=== PATIENT | male | born 1930 | race Caucasian/White ===

== ENCOUNTER 2020-11-05 17:00 | Inpatient (IN) | payer OTHER ==
--- OUTSIDE RECORDS SUMMARY | 2020-11-05 17:03 | XMS REPORT | Continuity of Care Document ---
:1930 Author Organization [facility] t Address [address] [place] [address] Support Name Relationship Address Phone Jonatan Cat Other [address] [place] [address] SUNITA VILLALPANDO, MD GISELA Jensen Admitting Provider [address] [place] [address] ROLO VILLALPANDO, C Emergency Provider [address] [facility] [address] EMORY, (POA) Family Member [address] [facility] [place] [address] MAYRA VILLALPANDO, L Emergency Provider [address] [place] [address] ANGELIKA VILLALPANDO, A Emergency Provider [address] [place] [address] SHEIKH IRASEMA, A Emergency Provider [facility] [address] [place] [address] VIJAY RAMÍREZ DO Emergency Provider [address] [place] [address] KENDAL VILLALPANDO, E Emergency Provider [address] [facility] [id number] [place] [address] MD DACIA Emergency Provider [address] [place] [address] MD SUNITA L Primary Care Physician [address] [place] [address] [place] [address] KG Family Member [address] [place] [address] Care Team Providers Name Role Phone HARRIET Primary Care Physician Unavailable HARREIT Attending Clinician Unavailable HARRIET Admitting Clinician Unavailable Problems Condition Condition Condition Status Onset Resolution Last Treating Co mments Source Name Details Category Date Date Treatment Clinician Date 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 Social History Social Habit Start Date Stop Date Quantity Comments Source Sex Assigned At [facility] Alcohol intake 2017-03-16 2017-03-16 Current drinker [place] [facility] 00:00:00 00:00:00 of alcohol (finding) Alcohol Comment 2017-03-15 2017-03-15 Pt. drink 2 cans [facility]ule[facility]ka [facility] 00:00:00 00:00:00 of beer once a week Smoking Status Start Date Stop Date Source Former smoker 2017-03-16 00:00:00 2017-03-16 00:00:00 [facility] Medications Ordered Filled Start Stop Current Ordering Indication Dosage Frequency Signature Comments Components Source Medication Medication Date Date Medication? Clinician (SIG) Name Name tamsulosin Yes .4mg QD Take 0.4 Zule[facility]ka ston (FLOMAX) 7-12 mg by Methodi 0.4 mg 10:05: mouth st capsule,ext 13 daily. ended release 24hr aspirin Yes 81mg QD Take 81 mg [place] (ECOTRIN) 7-12 by mouth Method i 81 MG 10:05: daily. st enteric 13 coated tablet lisinopril- Yes 1{tbl} QD Take 1 [place] hydrochloro 7-12 tablet by Met hodi thiazide 10:05: mouth st (PRINZIDE,Z 13 daily. ESTORETIC) 20-12.5 mg per tablet pantoprazol Yes 40mg QD Take 40 mg [place] e 7-12 by mouth Methodi (PROTONIX) 10:05: daily. st 40 MG EC 13 tablet pravastatin Yes 40mg QD Take 40 mg [place] (PRAVACHOL) 7-12 by mouth Meth juan jose 40 MG 10:05: daily. st tablet 13 digoxin 125 digoxin 125 No digoxin [facility] mcg tabs mcg tabs 125 mcg da tabs [facility] flecainide flecainide No flecainide [facility] acetate 100 acetate 100 acetate da mg tabs mg tabs 100 mg Medical tabs Group gabapentin gabapentin No gabapentin [facility] 100 mg caps 100 mg caps 100 mg da caps Medical Group isosorbide isosorbide No isosorbide [facility] mononitrate mononitrate mononitrat da er 30 mg er 30 mg e er 30 mg M edical tb24 tb24 tb24 Group pantoprazol pantoprazol No pantoprazo [facility] e sodium 40 e sodium 40 le sodium da mg tbec mg tbec 40 mg tbec Med ical Group pravastatin pravastatin No pravastati [place] sodium 20 sodium 20 n sodium d a mg tabs mg tabs 20 mg tabs Med ical Group ranitidine ranitidine No ranitidine [facility] hcl 150 mg hcl 150 mg hcl 150 mg da tabs tabs tabs Medical Group tamsulosin tamsulosin No tamsulosin [facility] hydrochlori hydrochlori hydrochlor da de 0.4 mg de 0.4 mg melissa 0.4 mg Medical caps caps caps Group tramadol tramadol No tramadol [facility] hcl 50 mg hcl 50 mg hcl 50 mg da tabs tabs tabs Medical Group amlodipine amlodipine No amlodipine [facility] besylate 5 besylate 5 besylate 5 da mg tabs mg tabs mg tabs Medica l Group anoro anoro No anoro [facility] ellipta ellipta ellipta da 62.5-25 62.5-25 62.5-25 Medica l mcg/inh mcg/inh mcg/inh Group aepb aepb aepb cefdinir cefdinir No cefdinir [facility] 300 mg caps 300 mg caps 300 mg da caps Medical [facility] Vital Signs Vital Name Observation Time Observation Value Comments Source BP Diastolic 2019-02-04 00:00:00 87 mm[Hg] [facility] Height 2019-02-04 00:00:00 71 [in_i] [facility] BMI (Body Mass 2019-02-04 00:00:00 22 kg/m2 [facility] Medical Index) Group BP Systolic 2019-02-04 00:00:00 145 mm[Hg] [facility] Body Weight 2019-02-04 00:00:00 158 [lb_av] [facility] Procedures This patient has no known procedures. Plan of Care Planned Activity Planned Date Details Comments Source Future Scheduled Test 2020-04-08 [facility] 00:00:00 [code = INFLUENZA VACCINE] Future Scheduled Test 1996 65+ PNEUMOCOCCAL [facility] 00:00:00 VACCINE (1 of 1 - PPSV23) [code = 65+ PNEUMOCOCCAL VACCINE (1 of 1 - PPSV23)] Future Scheduled Test 1981 SHINGLES VACCINES [place] [facility] 00:00:00 (#1) [code = SHINGLES VACCINES (#1)] Future Scheduled Test 1947 COVID-19 VACCINE (1 [facility] 00:00:00 of 2) [code = COVID-19 VACCINE (1 of 2)] Instructions [facility] Encounters Start End Encounter Admission Attending Care Care Encounter Source Date/Time Date/Time Type Type Clinicians Facility Department ID 2019-02-04 2019-02-04 [facility] [place] - [id number] [facility] 00:00:00 00:00:00 Emory DO: [facility] a [address] [place] [address] Group Marissa, [facility] - [address], [facility] [place] [address] , Ph. [phone] 2017-07-28 2017-07-28 Outpatient Sher LARIOS, [facility] [id number] [facility] 20:53:00 20:53:00 [facility] Results Test Description Test Time Test Comments Results Result Comments Source Lipid Profile 2017-07-28 23:53:00 Test Item Value Reference Range Interpretation Comme nts Cholesterol (test code = CHOL) 207 mg/dL 0-200 H Triglycerides (test code = 69 mg/dL 9-200 N TRIG) HDL (test code = HDL) 73 mg/dL 40-60 H Chol/HDL (test code = 2.8 Ratio 0.0-5.0 N CHOLPHDL) LDL, Calculated (test code = 120 0-130 N (NOTE)RISK OF HEART LDLC) DISEASEPublishe d by Filipino Heart AssociationAnal yte Optimal Boderline Increased R iskCHOL <200 200-239 >240TRIG <150 150-199 >200HDL Male: >60 <40HDL Female: & gt;60 <50LDL <100 130- 159 >160LDL NEAR OPTIMAL IS 100- 129 VLDL (test code = VLDL) 14 mg/dL 5-40 N LDL/HDL (test code = LDLPHDL) 2
--- NOTE | 2020-11-05 20:04 | RAD REPORT ---
EXAM DESCRIPTION: Marge Single View11/05/2020 7:49 pm CLINICAL HISTORY: Cough COMPARISON: none FINDINGS: Bilateral calcified lung granulomas. The lungs appear clear of acute infiltrate. The heart is normal size IMPRESSION: No acute abnormalities displayed
[2020-11-05 20:18] LABS: Absolute Lymphocytes (CBC) 1.6 K/uL (0.7-4.9); Basophils % 0.4 % (0-1.3); Hematocrit 40.5 % (39.6-49.0); Lymphocytes % 14.5 % (15.3-44.8); MPV 8.4 fL (7.6-11.3); Protime INR 1.23
[2020-11-05 20:34] LABS: ALT/SGPT 18 U/L (12-78); AST/SGOT 17 U/L (15-37); Albumin 3.6 g/dL (3.4-5.0); Alkaline Phosphatase 81 U/L (45-117); BUN Blood Urea Nitrogen 13 mg/dL (7-18); Bicarbonate 26 mmol/L (21-32); Bilirubin Direct 0.2 mg/dL (0-0.2); Bilirubin Total 0.8 mg/dL (0.2-1.0); Glucose Level 94 mg/dL (74-106); Magnesium 1.9 mg/dL (1.8-2.4); NT PRO-BNP 256 pg/mL (<450); Sodium Level 141 mmol/L (136-145); Troponin (Emerg Dept Use Only) < 0.02 ng/mL (0.0-0.045)
[2020-11-05] MEDS ORDERED: ALBUTEROL INHALER 60 PUFF/8 GM IH ONE (21:02)
[2020-11-05 21:45] LABS: SARS-COV-2 RT PCR NEGATIVE (NEGATIVE)
--- NOTE | 2020-11-05 23:41 | EDPHYS ---
Physician Documentation [facility] Name: Fidel Payne Age: 89 yrs Sex: Male : 1930 Arrival Date: 11/05/2020 Time: 17:02 Bed 25 Private MD: ED Physician Александр Hampton HPI: 11/05 19:25 This 89 yrs old Male presents to ER via Wheelchair with complaints of mh7 Shortness Of Breath, Coughing up blood. 19:25 The patient has shortness of breath at rest, with light activity. Onset: The mh7 symptoms/episode began/occurred yesterday. Duration: The symptoms are intermittent, with no pattern. The patient's shortness of breath is aggravated by coughing, light activity, is alleviated by nothing. Associated signs and symptoms: Pertinent positives: productive cough, hemoptysis, Pertinent negatives: chest pain, non-productive cough, diaphoresis, dizziness, fever, loss of consciousness, nausea, numbness in extremities, visual changes, vomiting. Severity of symptoms: At their worst the symptoms were moderate yesterday, in the emergency department the symptoms are unchanged. Historical: - Allergies: 17:14 No Known Allergies; sv - PMHx: 17:14 None; sv - Immunization history:: Adult Immunizations unknown. - Social history:: Smoking status: Patient/guardian denies using tobacco, but has a distant history of tobacco abuse. ROS: 19:25 Constitutional: Negative for fever, chills, and weight loss, Eyes: Negative for injury, mh7 pain, redness, and discharge, ENT: Negative for injury, pain, and discharge, Neck: Negative for injury, pain, and swelling, Cardiovascular: Negative for chest pain, palpitations, and edema, Abdomen/GI: Negative for abdominal pain, nausea, vomiting, diarrhea, and constipation, Back: Negative for injury and pain, : Negative for injury, bleeding, discharge, and swelling, MS/Extremity: Negative for injury and deformity, Skin: Negative for injury, rash, and discoloration, Neuro: Negative for headache, weakness, numbness, tingling, and seizure, Psych: Negative for depression, anxiety, suicide ideation, homicidal ideation, and hallucinations, Allergy/Immunology: Negative for hives, rash, and allergies, Endocrine: Negative for neck swelling, polydipsia, polyuria, polyphagia, and marked weight changes, Hematologic/Lymphatic: Negative for swollen nodes, abnormal bleeding, and unusual bruising. Exam: 19:25 Constitutional: This is a well developed, well nourished patient who is awake, alert, mh7 and in no acute distress. Head/Face: Normocephalic, atraumatic. Eyes: Pupils equal round and reactive to light, extra-ocular motions intact. Lids and lashes normal. Conjunctiva and sclera are non-icteric and not injected. Cornea within normal limits. Periorbital areas with no swelling, redness, or edema. ENT: Nares patent. No nasal discharge, no septal abnormalities noted. Tympanic membranes are normal and external auditory canals are clear. Oropharynx with no redness, swelling, or masses, exudates, or evidence of obstruction, uvula midline. Mucous membranes moist. Neck: Trachea midline, no thyromegaly or masses palpated, and no cervical lymphadenopathy. Supple, full range of motion without nuchal rigidity, or vertebral point tenderness. No Meningismus. Chest/axilla: Normal chest wall appearance and motion. Nontender with no deformity. No lesions are appreciated. Cardiovascular: Regular rate and rhythm with a normal S1 and S2. No gallops, murmurs, or rubs. Normal PMI, no JVD. No pulse deficits. 19:25 Abdomen/GI: Soft, non-tender, with normal bowel sounds. No distension or tympany. No guarding or rebound. No evidence of tenderness throughout. Back: No spinal tenderness. No costovertebral tenderness. Full range of motion. Skin: Warm, dry with normal turgor. Normal color with no rashes, no lesions, and no evidence of cellulitis. MS/ Extremity: Pulses equal, no cyanosis. Neurovascular intact. Full, normal range of motion. Neuro: Awake and alert, GCS 15, oriented to person, place, time, and situation. Cranial nerves II-XII grossly intact. Motor strength 5/5 in all extremities. Sensory grossly intact. Cerebellar exam normal. Normal gait. Psych: Awake, alert, with orientation to person, place and time. Behavior, mood, and affect are within normal limits. 19:25 Respiratory: the patient does not display signs of respiratory distress, Respirations: normal, Breath sounds: rales, that are mild, are scattered, rhonchi, that are mild, are scattered, Respiratory rate: 20 Vital Signs: 17:13 BP 154 / 70; Pulse 96; Resp 18; Temp 98.6; Pulse Ox 97% on R/A; Weight 72.57 kg; Height sv 5 ft. 11 in. (180.34 cm); Pain 0/10; 19:14 BP 161 / 88; Pulse 93; Resp 20; Pulse Ox 97% on R/A; vg1 20:07 BP 156 / 81; Pulse 90; Resp 22; Pulse Ox 97% on R/A; vg1 21:00 BP 177 / 77; Pulse 90; Resp 24; Pulse Ox 99% on R/A; vg1 22:00 BP 167 / 91; Pulse 88; Resp 22; Pulse Ox 98% on R/A; vg1 23:52 BP 154 / 82; Pulse 85; Resp 20; Temp 99.3; Pulse Ox 100% on R/A; vg1 17:13 Body Mass Index 22.31 (72.57 kg, 180.34 cm) sv MDM: 23:39 Differential diagnosis: Anemia Anxiety Reaction asthma, Bronchitis CHF exacerbation, [facility] Chronic Obstructive Pulmonary Disease Myocardial Infarction pneumonia, Pneumothorax Psychogenic pulmonary edema, Pulmonary Embolism reactive airway disease, Hemoptysis. Data reviewed: vital signs, nurses notes, lab test result(s), cardiac enzymes, CBC, electrolytes, EKG, radiologic studies, CT scan, plain films. Data interpreted: Pulse oximetry: on 2L(s) per nasal canula, is 98 %. Interpretation: acceptable. Counseling: I had a detailed discussion with the patient and/or guardian regarding: the historical points, exam findings, and any diagnostic results supporting the discharge/admit diagnosis, the presence of at least one elevated blood pressure reading (>120/80) during this emergency department visit, lab results, radiology results, the need for further work-up and treatment in the hospital. Response to treatment: the patient's symptoms have mildly improved after treatment. 23:41 Patient medically screened. [facility] 11/05 19:12 Order name: Basic Metabolic Panel [facility] 11/05 19:12 Order name: CBC with Diff [facility] 11/05 19:12 Order name: LFT's; Complete Time: 20:44 [facility] 11/05 19:12 Order name: Magnesium; Complete Time: 20:44 [facility] 11/05 19:12 Order name: NT PRO-BNP; Complete Time: 20:44 [facility] 11/05 19:12 Order name: PT-INR; Complete Time: 20:44 [facility] 11/05 19:12 Order name: Troponin (emerg Dept Use Only); Complete Time: 20:44 [facility] 11/05 19:12 Order name: Blood Culture Adult (2) [facility] 11/05 19:12 Order name: Type And Screen; Complete Time: 23:05 [facility] 11/05 19:12 Order name: Basic Metabolic Panel; Complete Time: 20:44 [facility] 11/05 19:12 Order name: CBC with Automated Diff; Complete Time: 20:44 [facility] 11/05 19:13 Order name: Chest Single View XRAY; Complete Time: 20:05 [facility] 11/05 21:46 Order name: COVID-19/FLU A+B; Complete Time: 23:05 [facility] 11/06 00:17 Order name: Liver (Hepatic) Function [facility] 11/06 00:17 Order name: Thyroid Stimulating Hormone [facility] 11/06 00:17 Order name: CBC with Automated Diff [facility] 11/06 00:17 Order name: CBC with Automated Diff [facility] 11/06 00:17 Order name: Comprehensive Metabolic Panel [facility] 11/06 00:17 Order name: Comprehensive Metabolic Panel [facility] 11/06 00:17 Order name: Lipid Profile [facility] 11/06 00:17 Order name: Lipid Profile [facility] 11/06 00:17 Order name: Troponin I [facility] 11/06 00:17 Order name: Troponin I [facility] 11/06 00:17 Order name: Troponin I [facility] 11/06 00:17 Order name: Troponin I [facility] 11/06 00:17 Order name: Sputum Gram Stain [facility] 11/05 19:12 Order name: EKG; Complete Time: 19:12 [facility] 11/05 19:12 Order name: Cardiac monitoring; Complete Time: 20:31 [facility] 11/05 19:12 Order name: EKG - Nurse/Tech; Complete Time: 20:31 [facility] 11/05 19:12 Order name: IV Saline Lock; Complete Time: 20:06 [facility] 11/05 19:12 Order name: Labs collected and sent; Complete Time: 20:06 [facility] 11/05 19:12 Order name: O2 Per Protocol; Complete Time: 20:06 [facility] 11/05 19:12 Order name: O2 Sat Monitoring; Complete Time: 20:06 [facility] 11/05 20:45 Order name: CT Chest For PE Angio [facility] 11/06 00:03 Order name: Social Service Consult [facility] 11/06 00:17 Order name: CONS Pharmacy Consult [facility] 11/06 00:17 Order name: CONS Physician Consult [facility] 11/06 00:17 Order name: Heart Healthy [facility] Administered Medications: 20:45 Drug: Albuterol HFA Inhaler 2 puffs Route: Inhalation; vg1 Disposition: 11/05/20 23:41 Hospitalization ordered by Malena Quintero for Inpatient Admission. Preliminary diagnosis are Dyspnea, unspecified, Hemoptysis. - Bed requested for Telemetry/MedSurg (Inpatient). - Status is Inpatient Admission. bb - Condition is Stable. - Problem is new. - Symptoms have improved. Signatures: Dispatcher [employer] [facility] Osiris Bone RN RN Love Thorpe RN Sendy Mejia RN RN bb Garcia, Victoria, RN RN 1 Александр Hampton MD MD [facility] Corrections: (The following items were deleted from the chart) 19:40 17:53 Chest Pa And Lat (2 Views)+RAD.RAD.BRZ ordered. [facility] 20:42 20:27 Influenza Screen (A \T\ B)+BA.LAB.BRZ ordered. [facility] 23:48 23:41 Hospitalization Ordered by Malena Quintero MD for Inpatient Admission. Preliminary diagnosis is Dyspnea, unspecified; Hemoptysis. Bed requested for Telemetry/MedSurg (Inpatient). Status is Inpatient Admission. Condition is Stable. Problem is new. Symptoms have improved. [facility] 11/06 00:32 11/05 23:48 11/05/2020 23:41 Hospitalization Ordered by Malena Quintero MD for Inpatient bb Admission. Preliminary diagnosis is Dyspnea, unspecified; Hemoptysis. Bed requested for Telemetry/MedSurg (Inpatient). Status is Inpatient Admission. Condition is Stable. Problem is new. Symptoms have improved.
--- NOTE | 2020-11-05 23:41 | ER ---
Nurse's Notes [facility] Name: Fidel Payne Age: 89 yrs Sex: Male : 1930 Arrival Date: 11/05/2020 Time: 17:02 Bed 25 Private MD: Diagnosis: Dyspnea, unspecified;Hemoptysis Presentation: 11/05 17:13 Chief complaint: Patient states: blurry vision, cough with blood, SOB that started sv yesterday. Coronavirus screen: Client denies travel out of the [place] in the last 14 days. At this time, the client does not indicate any symptoms associated with coronavirus-19. Ebola Screen: No symptoms or risks identified at this time. Risk Assessment: Do you want to hurt yourself or someone else? Patient reports no desire to harm self or others. Onset of symptoms was November 04, 2020. 17:13 Method Of Arrival: Wheelchair sv 17:13 Acuity: SOUTH 3 sv 17:13 Initial Sepsis Screen: Does the patient meet any 2 criteria? HR > 90 bpm. No. Patient's sv initial sepsis screen is negative. Does the patient have a suspected source of infection? No. Patient's initial sepsis screen is negative. Triage Assessment: 17:16 General: Appears in no apparent distress. comfortable, Behavior is calm, cooperative, sv appropriate for age. Neuro: Level of Consciousness is awake, alert, obeys commands, Oriented to person, place, time, situation. Respiratory: Reports shortness of breath Respiratory effort is even, unlabored, Respiratory pattern is regular, symmetrical, Sputum is blood streaked, Onset: The symptoms/episode began/occurred yesterday, the patient has mild shortness of breath. Historical: - Allergies: 17:14 No Known Allergies; sv - PMHx: 17:14 None; sv - Immunization history:: Adult Immunizations unknown. - Social history:: Smoking status: Patient/guardian denies using tobacco, but has a distant history of tobacco abuse. Screenin:14 Abuse screen: Denies threats or abuse. Nutritional screening: No deficits noted. vg1 Tuberculosis screening: No symptoms or risk factors identified. Fall Risk No fall in past 12 months (0 pts). No secondary diagnosis (0 pts). IV access (20 points). Ambulatory Aid- None/Bed Rest/Nurse Assist (0 pts). Gait- Normal/Bed Rest/Wheelchair (0 pts) Mental Status- Oriented to own ability (0 pts). Total Reid Fall Scale indicates No Risk (0-24 pts). Assessment: 17:52 Reassessment: Received VO from Dr Alex for CXR. sv 19:13 General: Appears in no apparent distress. comfortable, Behavior is calm, cooperative. vg1 Pain: Denies pain. Neuro: Level of Consciousness is awake, alert, obeys commands, Oriented to person, place, time, situation. Cardiovascular: Patient's skin is warm and dry. Respiratory: Airway is patent Respiratory effort is even, unlabored, Breath sounds with crackles in right upper lobe and left upper lobe. GI: No signs and/or symptoms were reported involving the gastrointestinal system. : No signs and/or symptoms were reported regarding the genitourinary system. EENT: No signs and/or symptoms were reported regarding the EENT system. Derm: Skin is pink, warm \T\ dry. Musculoskeletal: Circulation, motion, and sensation intact. 20:08 Reassessment: Patient appears in no apparent distress at this time. No changes from vg1 previously documented assessment. Patient and/or family updated on plan of care and expected duration. Pain level reassessed. Patient is alert, oriented x 3, equal unlabored respirations, skin warm/dry/pink. Patient continues to cough up blood. 21:21 Reassessment: Patient appears in no apparent distress at this time. No changes from vg1 previously documented assessment. Patient and/or family updated on plan of care and expected duration. Pain level reassessed. Patient is alert, oriented x 3, equal unlabored respirations, skin warm/dry/pink. Patient denies pain at this time. 22:30 Reassessment: Patient appears in no apparent distress at this time. No changes from vg1 previously documented assessment. Patient and/or family updated on plan of care and expected duration. Pain level reassessed. Patient is alert, oriented x 3, equal unlabored respirations, skin warm/dry/pink. Patient denies pain at this time. 23:54 Reassessment: Patient appears in no apparent distress at this time. Patient and/or vg1 family updated on plan of care and expected duration. Pain level reassessed. Patient is alert, oriented x 3, equal unlabored respirations, skin warm/dry/pink. Patient denies pain at this time. 23:54 Cardiovascular: Rhythm is sinus rhythm. vg1 11/06 00:05 Reassessment: report given to Loren MARCUM for room 421. bb Vital Signs: 11/05 17:13 BP 154 / 70; Pulse 96; Resp 18; Temp 98.6; Pulse Ox 97% on R/A; Weight 72.57 kg; Height sv 5 ft. 11 in. (180.34 cm); Pain 0/10; 19:14 BP 161 / 88; Pulse 93; Resp 20; Pulse Ox 97% on R/A; vg1 20:07 BP 156 / 81; Pulse 90; Resp 22; Pulse Ox 97% on R/A; vg1 21:00 BP 177 / 77; Pulse 90; Resp 24; Pulse Ox 99% on R/A; vg1 22:00 BP 167 / 91; Pulse 88; Resp 22; Pulse Ox 98% on R/A; vg1 23:52 BP 154 / 82; Pulse 85; Resp 20; Temp 99.3; Pulse Ox 100% on R/A; vg1 17:13 Body Mass Index 22.31 (72.57 kg, 180.34 cm) sv ED Course: 17:02 Patient arrived in ED. mr 17:12 Arm band placed on. sv 17:14 Triage completed. sv 19:02 Александр Hampton MD is Attending Physician. 7 19:13 Vee George, TRIXIE is Primary Nurse. vg1 19:14 Patient has correct armband on for positive identification. Bed in low position. Call vg1 light in reach. Side rails up X2. 19:49 Chest Single View XRAY In Process Unspecified. EDMS 19:55 Inserted saline lock: 22 gauge in left antecubital area, using aseptic technique. Blood vg1 collected. 19:55 Initial lab(s) drawn, by nd, sent to lab. First set of blood cultures drawn by nd. vg1 22:[address] via stretcher. vg1 22:23 CT Chest For PE Angio In Process Unspecified. EDMS 23:40 Malena Quintero MD is Hospitalizing Provider[facility] 23:54 No provider procedures requiring assistance completed. Patient admitted, IV remains in vg1 place. Administered Medications: 20:45 Drug: Albuterol HFA Inhaler 2 puffs Route: Inhalation; vg1 Outcome: 23:41 Decision to Hospitalize by Provider. mh7 11/06 00:05 Admitted to Tele accompanied by tech, via stretcher, room 421, with chart, Report bb called to Loren MARCUM Condition: stable Instructed on the need for admit. 00:32 Patient left the ED. pily Signatures: Dispatcher [employer] EDOsiris King RN RN sv Barbara Cyr mr Sendy Patino RN RN bb Vee George RN RN vg1 Александр Hampton MD MD 7 Corrections: (The following items were deleted from the chart) 11/05 17:16 17:13 Chief complaint: Patient states: blurry vision, cough with blood, SOB that sv started yesterday. sv 17:16 17:13 Pulse 96bpm; Resp 18bpm; Pulse Ox 97% RA; Temp 98.6F; sv sv 17:16 17:13 Pulse 96bpm; Resp 18bpm; Pulse Ox 97% RA; Temp 98.6F; 72.57 kg; Height 5 ft. 11 sv in.; BMI: 22.3; Pain 0/10; sv 20:08 20:08 Reassessment: Patient appears in no apparent distress at this time. No changes vg1 from previously documented assessment. Patient and/or family updated on plan of care and expected duration. Pain level reassessed. Patient is alert, oriented x 3, equal unlabored respirations, skin warm/dry/pink. vg1
--- NOTE | 2020-11-05 23:50 | P.HP ---
Certification for Inpatient With expected LOS: >2 Midnights Patient will require the following post-hospital care: Home Health Services Practitioner: I am a practitioner with admitting privileges, knowledge of patient current condition, hospital course, and medical plan of care. Services: Services provided to patient in accordance with Admission requirements found in Title 42 Section 412.3 of the Code of Federal Regulations Patient History Date of Service: 11/05/20 Reason for admission: Hemoptysis History of Present Illness: 89-year-old male past medical history of hypertension, hyperlipidemia, BPH, unsure history of cardiac problems but denies any previous CAD or cardiac catheterization but on aspirin and Plavix as well as flecanide ( ? atrial fib) admitted after developing one-day history of cough which later became more persistent associated with bloody sputum today. Patient denies any chest pain but feels some chest congestion with each coughing episodes now. He continued to have hemoptysis with his cough. even on arrival at the emergency room. He denies previous similar episode. He denies any cough contact. He denies any fever. He admits to shortness of breath starting today. Shortness of breath is only present on S action. He denies any but the swelling. He denies any recent travel. He denies any covid 19 exposure. Patient denies any personal family history of lung cancer. He states he has never been diagnosed with COPD. He has never been diagnosed with any tuberculosis or chronic lung infection in the past. He admits to prior history of tobacco use but quit over 30 years ago. He denies any significant weight loss-admit to only 3 lb weight change in the last 6 months. Initial testing shows negative screen for covid 19 or influenza. Chest x-ray shows calcified bilateral granuloma. CT of the chest shows no evidence of pulmonary embolism but significant bronchiectasis in the right upper lung with mucus plugging He has being admitted for further workup of hemoptysis. Home medications list reviewed: Yes - Past Medical/Surgical History Has patient received pneumonia vaccine in the past: No Diabetic: No -: HTN -: BPH -: HLD -: Cardiac Arrythmias Past Surgical History: Reviewed- Non-Contributory - Family History Family History: Reviewed- Non-Contributory - Social History Smoking Status: Former smoker Counseled patient to stop smoking for: less than 10 minutes Smoking therapy provided: No Patient receptive to therapy: No Alcohol use: No CD- Drugs: No Caffeine use: No Place of Residence: Home Review of Systems General: Unremarkable Eyes: Unremarkable ENT: Unremarkable Respiratory: Cough, Shortness of Breath, Hemoptysis Cardiovascular: Unremarkable Gastrointestinal: Unremarkable Genitourinary: Unremarkable Musculoskeletal: Unremarkable Integumentary: Unremarkable Neurological: Unremarkable Physical Examination - Physical Exam General: Alert, In no apparent distress, Oriented x3, Other (average built , non ill- looking ) HEENT: Atraumatic, Normocephalic, PERRLA, Mucous membr. moist/pink, EOMI, Sclerae nonicteric Neck: Supple, 2+ carotid pulse no bruit, JVD not distended Respiratory: Clear to auscultation bilaterally, Normal air movement Cardiovascular: No edema, Normal pulses, Regular rate/rhythm, Normal S1 S2 Capillary refill: <2 Seconds Gastrointestinal: Normal bowel sounds, Soft and benign, Non-distended, No ascites Musculoskeletal: No clubbing, No swelling Integumentary: No rashes, No breakdown, No significant lesion Neurological: Normal gait, Normal speech, Normal strength at 5/5 x4 extr, Normal tone Lymphatics: No axilla or inguinal lymphadenopathy - Studies Laboratory Data (last 24 hrs) 11/05/20 19:55: PT 14.2 H, INR 1.23 11/05/20 19:55: WBC 10.70, Hgb 13.1 L, Hct 40.5, Plt Count 257 11/05/20 19:55: Sodium 141, Potassium 4.0, BUN 13, Creatinine 1.00, Glucose 94, Magnesium 1.9, Total Bilirubin 0.8, AST 17, ALT 18, Alkaline Phosphatase 81 Imagings Data: EXAM DESCRIPTION: Marge Single View11/05/2020 7:49 pm CLINICAL HISTORY: Cough COMPARISON: none FINDINGS: Bilateral calcified lung granulomas. The lungs appear clear of acute infiltrate. The heart is normal size IMPRESSION: No acute abnormalities displayed Ct Chest - moderate centrilobular emphysema, moderate bronchiectasis in the right upper lung lobe with regions of mucous plugging. Mild bronchiectasis in the medial basilar right lower lobe with prominent mucus plugging. Small calcification in the right lower lobe possibly calcified nodules Mediastinum-partially calcified mediastinal lymph nodes Assessment and Plan - Problems (Diagnosis) (1) Hemoptysis Current Visit: Yes Status: Acute (2) COPD (chronic obstructive pulmonary disease) with emphysema Current Visit: Yes Status: Acute (3) Bronchiectasis with (acute) exacerbation Current Visit: Yes Status: Acute (4) HTN (hypertension) Current Visit: Yes Status: Acute (5) BPH w/o urinary obs/LUTS Current Visit: Yes Status: Acute - Plan # Hemoptysis-may be due to COPD with possible new bronchiectasis and mucous plugging. -will need bronchoscopy -will consult Pulmonary -start guaifenesin as well as Mucomyst to enhance mucous secretion -we need to rule out tuberculosis giving old granulomas -will obtain a TB QuantiFERON testing or PPD testing if unable to obtain sputum for acid-fast bacilli but would defer to Pulmonary -start empirical steroids and antibiotics #Hypertension-controlled, resume home regimen #Cardiac arrhythmia/AFib-resume aspirin/Plavix/flecanide #BPH-continue Flomax #DVT prophylaxis-subcutaneous heparin q12h despite hemptysis #Advanced directive-full code #Disposition possible hospital stay for 2-3 days. Will consult case management to help with assist at home at discharge as patient lives alone - Advance Directives Does patient have a Living Will: No Does patient have a Durable POA for Healthcare: No Physician Review: Patient Assessed, Agree with Above Assessment and Plan Time Spent Managing Pts Care (In Minutes): 70
[2020-11-06] MEDS ORDERED: ONDANSETRON 4 MG/2 ML VIAL IV PRN (00:01)
[2020-11-06] MEDS ORDERED: ACETAMINOPHEN 500 MG TAB PO PRN (00:01)
[2020-11-06] MEDS ORDERED: CEFTRIAXONE 1 GM/NS 50 ML 1 GM/50 ML BAG IV SCH (00:11)
[2020-11-06] MEDS ORDERED: Oxycodone HCl/Acetaminophen 1 TAB TAB PO PRN (00:11)
[2020-11-06] MEDS ORDERED: GUAIFENESIN/DM 5 ML UCUP PO PRN (00:11)
[2020-11-06] MEDS ORDERED: LORAZEPAM 0.5 MG TABLET PO PRN (00:11)
[2020-11-06] MEDS ORDERED: HYDRALAZINE HCL 20 MG/ML VIAL IV PRN (00:11)
[2020-11-06] MEDS ORDERED: METHYLPREDNISOLONE 125 MG INJ IV SCH ×2 (00:15→08:00)
[2020-11-06 01:04] VITALS: BMI 22.3
[2020-11-06] MEDS: IPRATROPIUM BROM 0.5MG/2.5ML NEB SCH ×4 (01:30→20:40)
[2020-11-06] MEDS: ACETYLCYST 20% 4 ML VIAL IH SCH ×3 (01:30→20:40)
[2020-11-06] MEDS ORDERED: CEFTRIAXONE/SWI 1gm 1 GM/10 ML SYR IV SCH ×2 (02:00→21:00)
[2020-11-06] MEDS ORDERED: ACETYLCYST 6,000 MG/30 ML VIAL ONE (02:02)
[2020-11-06 05:47] LABS: Albumin 3.4 g/dL (3.4-5.0); Bilirubin Direct 0.2 mg/dL (0-0.2); Bilirubin Total 0.8 mg/dL (0.2-1.0); Protein, Total 7.6 g/dL (6.4-8.2); Thyroid Stimulating Hormone 0.671 uIU/mL (0.360-3.740)
[2020-11-06] MEDS: GUAIFENESIN 600 MG SA TAB PO SCH ×2 (07:40→20:59)
[2020-11-06] MEDS: ASPIRIN EC 81 MG TAB PO SCH (07:40)
[2020-11-06] MEDS: HEPARIN 5000 UNIT/ML 1 ML VIAL SQ SCH ×2 (07:41→21:00)
[2020-11-06] MEDS: levoFLOXacin 750 MG TAB PO SCH (10:01)
--- NOTE | 2020-11-06 11:58 | RAD REPORT ---
EXAM DESCRIPTION: CT - Chest For Pe Angio - 11/06/2020 5:42 am CLINICAL HISTORY: SOB;Hemoptysis. COMPARISON: None. TECHNIQUE: CTA of the chest was performed following intravenous administration of iodinated contrast . Axial soft tissue and bone window, and coronal and sagittal soft tissue window reconstructions were created and sent to PACS. 3D postprocessing was performed on an independent workstation, with images sent to PACS for subsequen t review. This exam was performed according to our departmental dose-optimization program, which includes autom ated exposure control, adjustment of the mA and/or kV according to patient size and/or use of iterati ve reconstruction technique. FINDINGS: Vascular: The pulmonary arteries are well-opacified to the segmental level. No CT evidence of acute pulmonary thromboembolism. No evidence of aortic aneurysm or dissection. Four vessel aortic arch, normal variant. Mild atherosclerosis. Lungs and pleura: Moderate centrilobular emphysema. Moderate bronchiectasis in the right upper lobe, with regions of mucous plugging. Mild bronchiectasis in the medial basilar right lower lobe, with pro minent mucous plugging. Small calcifications in the right lower lobe, possibly calcified nodules. No pulmonary consolidation. No pleural effusion. No pneumothorax. Mediastinum and neck: Partially calcified mediastinal lymph nodes. Unremarkable appearance of the thy roid gland. Cardiac: No cardiomegaly or pericardial effusion. No thoracic aortic aneurysm or dissection. Abdomen: Borderline steatosis. Punctate calcification in the spleen, likely sequela of remote prior h ealed granulomatous disease. Musculoskeletal: No concerning osseous abnormality. Osteopenia. IMPRESSION: 1. No CTA evidence of acute pulmonary thromboembolism. 2. Moderate emphysematous changes and bronchiectasis with regions of mucous plugging. 3. Sequela of remote prior healed granulomatous disease. 4. Borderline hepatic steatosis. Electronically signed by: Mariela Marie MD 11/05/2020 10:34 PM SECURITY INVESTIGATOR Due to temporary technical issues with the PACS/Fluency reporting system, reports are being signed by the in house radiologist without review as a courtesy to ensure prompt reporting. The interpreting r adiologist is fully responsible for the content of the report.
--- NOTE | 2020-11-06 12:56 | P.CNS ---
Date of Consult: 11/06/20 Reason for Consult: Hemoptysis Chief Complaint: Hemoptysis History of Present Illness: Patient is 89 years of age with a history of hypertension hyperlipidemia denies any prior history of coronary artery disease still taking aspirin Plavix and flecainide he developed sudden onset of hemoptysis no prior history of hemoptysis does not smoke for prior history of malignancy he is currently doing better had bright red hemoptysis Probably has underlying coronary artery disease Allergies No Known Allergies Allergy (Verified 11/06/20 01:17) Home Medications: Albuterol Sulfate [Proventil Hfa] 6.7 gm IH BID PRN 11/06/20 Amlodipine Besylate [Norvasc] 5 mg PO DAILY 11/06/20 Clopidogrel Bisulfate [Plavix*] 75 mg PO DAILY 11/06/20 Digoxin 125 mcg PO DAILY 11/06/20 Flecainide [Tambocor*] 100 mg PO BID 11/06/20 Gabapentin [Neurontin*] 100 mg PO BID 11/06/20 Isosorbide Mononitrate [Isosorbide Mononitrate ER] 30 mg PO DAILY 11/06/20 Pantoprazole [Protonix Tab*] 40 mg PO 0730 11/06/20 Pravastatin Sodium [Pravachol] 20 mg PO DAILY 11/06/20 Tamsulosin [Flomax*] 0.4 mg PO DAILY 11/06/20 - Past Medical/Surgical History Diabetic: No -: HTN -: BPH -: HLD -: Cardiac Arrythmias - Social History Smoking Status: Former smoker Alcohol use: No CD- Drugs: No Caffeine use: No Place of Residence: Home Review of Systems 10-point ROS is otherwise unremarkable Physical Examination Temp Pulse Resp BP Pulse Ox 96.7 F L 74 18 159/82 H 98 11/06/20 11:34 11/06/20 11:34 11/06/20 11:34 11/06/20 11:34 11/06/20 11:34 General: Alert, In no apparent distress, Oriented x3 Neck: Supple Respiratory: Clear to auscultation bilaterally Cardiovascular: No edema, Regular rate/rhythm Gastrointestinal: Normal bowel sounds, Soft and benign Musculoskeletal: No clubbing, No swelling Laboratory Data (last 24 hrs) 11/05/20 19:55: PT 14.2 H, INR 1.23 11/05/20 19:55: WBC 10.70, Hgb 13.1 L, Hct 40.5, Plt Count 257 11/05/20 19:55: Sodium 141, Potassium 4.0, BUN 13, Creatinine 1.00, Glucose 94, Magnesium 1.9, Total Bilirubin 0.8, AST 17, ALT 18, Alkaline Phosphatase 81 - Problems (1) Hemoptysis Current Visit: Yes Status: Acute Plan: Patient is 89 years of age admitted with acute onset of hemoptysis he is on aspirin Plavix DT scan shows right upper lobe bronchiectasis with some air-fluid level nor lung mass visible oxygenation satisfactory recommend stat AFB smear is negative patient can be discharged home on levofloxacin sputum culture is pending labs reviewed follow with me in 2 weeks will get records from his procurement professional patient is primary care is Dr. Sethi in [place]
--- NOTE | 2020-11-06 16:23 | P.PN ---
Subjective Date of Service: 11/06/20 Chief Complaint: Hemoptysis Subjective: No new changes (continues with hemoptysis, no worse / no improvement) Physical Examination - Vital Signs Temperature: 96.7 F Blood Pressure: 159/82 Pulse: 74 Respirations: 18 Pulse Ox (%): 98 - Studies Laboratory Data (last 24 hrs) 11/05/20 19:55: PT 14.2 H, INR 1.23 11/05/20 19:55: WBC 10.70, Hgb 13.1 L, Hct 40.5, Plt Count 257 11/05/20 19:55: Sodium 141, Potassium 4.0, BUN 13, Creatinine 1.00, Glucose 94, Magnesium 1.9, Total Bilirubin 0.8, AST 17, ALT 18, Alkaline Phosphatase 81 Assessment & Plan Physician Review Additional Text: Physical Exam: General: alert, NAD, AAOx3 HEENT: sclera anicteric, normal conjunctiva Pulm: CTAB, no wheeze, no rales on RA Cardiovascular: No edema, Normal pulses, Regular rate/rhythm, Normal S1 S2 Abd: soft, NTND Ext: no edema, no rash Problem List: Hemoptysis community acquired pneumonia COPD (chronic obstructive pulmonary disease) with emphysema Bronchiectasis with (acute) exacerbation HTN (hypertension) BPH w/o urinary obs/LUTS Hemoptysis Pneumonia -may be due to COPD with possible new bronchiectasis and mucous plugging vs community acquired pneumonia -pulm consulted, appreciate assistance -r/o TB - sputum sent for culture / AFB smear -continue guaifenesin as well as Mucomyst to enhance mucous secretion -continue empirical steroids and antibiotics - pulm recommends levaquin for now Hypertension -resume home regimen Cardiac arrhythmia/AFib-resume aspirin/Plavix/flecanide BPH-continue Flomax DVT prophylaxis- on subcutaneous heparin q12h despite hemptysis Code: full Dispo: anticipate hospitalization ~2-3 days. sputum culture growing gramp positive bacteria consulted case management to help with assist at home at discharge as patient lives alone Time Spent Managing Pts Care (In Minutes): 35
--- NOTE | 2020-11-06 17:08 | EKG ---
Test Date: 2020-11-06 Test Time: 03:11:29 Internal Medicine Hospitalist: ANETA MEASUREMENT RESULTS: Intervals: Rate: 92 ND: 298 QRSD: 98 QT: 376 QTc: 464 [place]: P: 54 ND: 298 QRS: -30 T: 8 INTERPRETIVE STATEMENTS: Sinus rhythm with 1st degree AV block with premature supraventricular complexes Left axis deviation Nonspecific ST abnormality Abnormal ECG Compared to ECG 11/05/2020 20:26:15 Atrial premature complex(es) now present Left-axis deviation now present ST (T wave) deviation now present Electronically Signed On 11-06-20 17:06:05 EDGER SAW OPERATOR by Hernandez Quevedo
--- NOTE | 2020-11-06 17:09 | EKG ---
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
[2020-11-06] MEDS: AMLODIPINE 5 MG TAB PO SCH (17:26)
[2020-11-06] MEDS: ISOSORBIDE MONO SR 30 MG TAB PO SCH (17:27)
[2020-11-06] MEDS: ALBUTEROL 2.5 MG/3 ML NEB SOL NEB PRN (20:40)
[2020-11-06] MEDS: FLECAINIDE 100 MG TAB PO SCH (20:59)
[2020-11-06] MEDS: GABAPENTIN 100 MG CAP PO SCH (21:00)
[2020-11-07] MEDS: IPRATROPIUM BROM 0.5MG/2.5ML NEB SCH ×4 (02:15→19:40)
[2020-11-07 04:11] LABS: Absolute Lymphocytes (CBC) 2.1 K/uL (0.7-4.9); Basophils % 0.2 % (0-1.3); Hematocrit 36.3 % (39.6-49.0); Lymphocytes % 14.5 % (15.3-44.8); RBC Red Blood Cell Count 4.25 M/uL (4.33-5.43)
[2020-11-07 04:31] LABS: ALT/SGPT 16 U/L (12-78); AST/SGOT 21 U/L (15-37); Alkaline Phosphatase 68 U/L (45-117); BUN Blood Urea Nitrogen 18 mg/dL (7-18); Bicarbonate 26 mmol/L (21-32); Bilirubin Total 0.5 mg/dL (0.2-1.0); Glucose Level 109 mg/dL (74-106); HDL Cholesterol 68 mg/dL (40-60); LDL Cholesterol, Calculated 86 (<130); Potassium 4.3 mmol/L (3.5-5.1); Protein, Total 7.1 g/dL (6.4-8.2); Sodium Level 141 mmol/L (136-145); Troponin I < 0.02 ng/mL (0.0-0.045)
[2020-11-07] MEDS: ACETYLCYST 20% 4 ML VIAL IH SCH ×2 (08:11→19:40)
[2020-11-07] MEDS: AMLODIPINE 5 MG TAB PO SCH (08:12)
[2020-11-07] MEDS: TAMSULOSIN 0.4 MG SR CAP PO SCH (08:12)
[2020-11-07] MEDS: DIGOXIN 0.125 MG TABLET PO SCH (08:12)
[2020-11-07] MEDS: ATORVASTATIN 10 MG TAB PO SCH (08:13)
[2020-11-07] MEDS: GABAPENTIN 100 MG CAP PO SCH ×2 (08:13→20:33)
[2020-11-07] MEDS: ASPIRIN EC 81 MG TAB PO SCH (08:13)
[2020-11-07] MEDS: CLOPIDOGREL 75 MG TABLET PO SCH (08:13)
[2020-11-07] MEDS: levoFLOXacin 750 MG TAB PO SCH (08:13)
[2020-11-07] MEDS: FLECAINIDE 100 MG TAB PO SCH ×2 (08:13→20:33)
[2020-11-07] MEDS: PANTOPRAZOLE 40MG TABLET PO SCH (08:13)
[2020-11-07] MEDS: GUAIFENESIN 600 MG SA TAB PO SCH ×2 (08:13→20:33)
[2020-11-07] MEDS: ISOSORBIDE MONO SR 30 MG TAB PO SCH (08:13)
[2020-11-07] MEDS ORDERED: PRAVASTATIN SODIUM 20 MG PO SCH (09:00)
--- NOTE | 2020-11-07 16:41 | P.PN ---
Subjective Date of Service: 11/07/20 Chief Complaint: Hemoptysis Subjective: Improving (Breathing comfortably, reports decreased bloody sputum amount, overall feeling better, remains afebrile, denies chills, denies chest pain) Review of Systems 10-point ROS is otherwise unremarkable Physical Examination - Vital Signs Temperature: 97.3 F Blood Pressure: 125/66 Pulse: 83 Respirations: 18 Pulse Ox (%): 98 Assessment & Plan Physician Review Additional Text: Physical Exam: General: alert, NAD, AAOx3 HEENT: sclera anicteric, normal conjunctiva Pulm: CTAB, no wheeze, no rales, breathing comfortably on RA Cardiovascular: No edema, Regular rate/rhythm, Normal S1 S2 Abd: soft, NTND Ext: no edema, no rash Problem List: Hemoptysis Community acquired pneumonia COPD (chronic obstructive pulmonary disease) with emphysema Bronchiectasis with (acute) exacerbation HTN (hypertension) BPH w/o urinary obs/LUTS Hemoptysis Pneumonia -may be due to COPD with possible new bronchiectasis and mucous plugging vs community acquired pneumonia -pulm consulted, appreciate assistance -need to r/o TB - sputum sent for culture / AFB smear - send out -continue guaifenesin as well as Mucomyst to enhance mucous secretion -continue empirical steroids and antibiotics - pulm recommends levaquin for now -leukocytosis today - did receive solumedrol on 11/06, procal negative Hypertension -continue home regimen Cardiac arrhythmia/AFib-continue aspirin/Plavix/flecanide BPH-continue Flomax VTE: ambulatory, patient ambulating well Code: full Dispo: anticipate dc home in 24-48hrs. sputum culture growing gramp positive bacteria. awaiting AFB smear consulted case management to help with assist at home at discharge as patient lives alone Time Spent Managing Pts Care (In Minutes): 40
[2020-11-08] MEDS: IPRATROPIUM BROM 0.5MG/2.5ML NEB SCH ×4 (02:50→20:05)
[2020-11-08 05:12] LABS: Basophils % 0.4 % (0-1.3); Lymphocytes % 19.7 % (15.3-44.8); MPV 8.6 fL (7.6-11.3); RBC Red Blood Cell Count 4.33 M/uL (4.33-5.43)
[2020-11-08 05:36] LABS: BUN Blood Urea Nitrogen 22 mg/dL (7-18); Bicarbonate 27 mmol/L (21-32); Glucose Level 93 mg/dL (74-106); Magnesium 2.2 mg/dL (1.8-2.4); Potassium 4.3 mmol/L (3.5-5.1); Sodium Level 140 mmol/L (136-145); Troponin I < 0.02 ng/mL (0.0-0.045)
[2020-11-08] MEDS: DIGOXIN 0.125 MG TABLET PO SCH (08:26)
[2020-11-08] MEDS: TAMSULOSIN 0.4 MG SR CAP PO SCH (08:26)
[2020-11-08] MEDS: FLECAINIDE 100 MG TAB PO SCH ×2 (08:26→20:48)
[2020-11-08] MEDS: PANTOPRAZOLE 40MG TABLET PO SCH (08:26)
[2020-11-08] MEDS: ISOSORBIDE MONO SR 30 MG TAB PO SCH (08:27)
[2020-11-08] MEDS: AMLODIPINE 5 MG TAB PO SCH (08:27)
[2020-11-08] MEDS: GABAPENTIN 100 MG CAP PO SCH ×2 (08:27→20:49)
[2020-11-08] MEDS: ATORVASTATIN 10 MG TAB PO SCH (08:27)
[2020-11-08] MEDS: GUAIFENESIN 600 MG SA TAB PO SCH ×2 (08:27→20:48)
[2020-11-08] MEDS: ASPIRIN EC 81 MG TAB PO SCH (08:27)
[2020-11-08] MEDS: CLOPIDOGREL 75 MG TABLET PO SCH (08:28)
[2020-11-08] MEDS: levoFLOXacin 750 MG TAB PO SCH (08:28)
[2020-11-08] MEDS: ACETYLCYST 20% 4 ML VIAL IH SCH ×2 (09:05→20:05)
[2020-11-08] MEDS: ALBUTEROL 2.5 MG/3 ML NEB SOL NEB PRN ×3 (09:05→20:05)
--- NOTE | 2020-11-08 13:05 | P.PN ---
Subjective Date of Service: 11/08/20 Chief Complaint: Hemoptysis Subjective: Improving (breathing more comfortably, no longer with hemoptysis today, feeling well in general, ambulating) Review of Systems 10-point ROS is otherwise unremarkable Physical Examination - Vital Signs Temperature: 97.6 F Blood Pressure: 119/62 Pulse: 89 Respirations: 18 Pulse Ox (%): 97 Assessment & Plan Physician Review Additional Text: Physical Exam: General: alert, NAD, AAOx3 HEENT: sclera anicteric, normal conjunctiva Pulm: CTAB, breathing comfortably on RA, no crackles/rales Cardiovascular: No edema, Regular rate/rhythm, Normal S1 S2 Abd: soft, NTND Ext: no edema, no rash Problem List: Hemoptysis Community acquired pneumonia COPD (chronic obstructive pulmonary disease) with emphysema Bronchiectasis with (acute) exacerbation HTN (hypertension) BPH w/o urinary obs/LUTS Hemoptysis Community acquired pneumonia -hemoptysis - concern for TB/fungal infxn, possible due to COPD/bronchiectasis; improving -pulm consulted, appreciate assistance -need to r/o TB - sputum sent for culture / AFB smear - send out -continue guaifenesin as well as Mucomyst to enhance mucous secretion -continue levaquin for now; sputum culture growing e.coli - likely contaminant, pt improving -leukocytosis on 11/07 - did receive solumedrol on 11/06, procal negative, leukocytosis improved Hypertension -continue home regimen Cardiac arrhythmia/AFib-continue aspirin/Plavix/flecanide BPH-continue Flomax VTE: ambulatory, patient ambulating well Code: full Dispo: anticipate dc home in 24-48hrs. sputum culture growing gram positive bacteria. awaiting AFB smear Advanced directives and care planning reviewed with patient, full code, and planning on discharge home, with home health consulted case management to help with assist at home at discharge as patient lives alone. Time Spent Managing Pts Care (In Minutes): 35
[2020-11-09] MEDS: IPRATROPIUM BROM 0.5MG/2.5ML NEB SCH ×3 (02:25→14:20)
[2020-11-09 03:57] LABS: Basophils % 0.6 % (0-1.3); Hematocrit 34.7 % (39.6-49.0); Lymphocytes % 24.2 % (15.3-44.8); MPV 8.8 fL (7.6-11.3); RBC Red Blood Cell Count 4.07 M/uL (4.33-5.43)
[2020-11-09 04:13] LABS: Magnesium 2.1 mg/dL (1.8-2.4); Potassium 4.2 mmol/L (3.5-5.1)
[2020-11-09] MEDS: CLOPIDOGREL 75 MG TABLET PO SCH (08:19)
[2020-11-09] MEDS: GUAIFENESIN 600 MG SA TAB PO SCH (08:20)
[2020-11-09] MEDS: ASPIRIN EC 81 MG TAB PO SCH (08:20)
[2020-11-09] MEDS: DIGOXIN 0.125 MG TABLET PO SCH (08:20)
[2020-11-09] MEDS: ISOSORBIDE MONO SR 30 MG TAB PO SCH (08:20)
[2020-11-09] MEDS: GABAPENTIN 100 MG CAP PO SCH (08:20)
[2020-11-09] MEDS: AMLODIPINE 5 MG TAB PO SCH (08:20)
[2020-11-09] MEDS: ATORVASTATIN 10 MG TAB PO SCH (08:20)
[2020-11-09] MEDS: TAMSULOSIN 0.4 MG SR CAP PO SCH (08:20)
[2020-11-09] MEDS: PANTOPRAZOLE 40MG TABLET PO SCH (08:24)
[2020-11-09] MEDS: FLECAINIDE 100 MG TAB PO SCH (08:24)
[2020-11-09] MEDS: levoFLOXacin 750 MG TAB PO SCH (08:24)
[2020-11-09] MEDS ORDERED: POLYETHYL GLY 3350 17 GM/DOSE PO ONE (09:25)
[2020-11-09] MEDS: ACETYLCYST 20% 4 ML VIAL IH SCH ×2 (09:34→14:20)
[2020-11-09 11:48] VITALS: O2SAT 97
--- NOTE | 2020-11-09 14:56 | P.DS ---
Admission Date: 11/05/20 Discharge Date: 11/09/20 Disposition: DC HOME/HOME HEALTH CARE Discharge Condition: GOOD Reason for Admission: Hemoptysis Consultations: Pulm - Dr. Soler Procedures: CXR (11/05): Bilateral calcified lung granulomas. The lungs appear clear of acute infiltrate. The heart is normal size CTA Chest (11/05): 1. No CTA evidence of acute pulmonary thromboembolism. 2. Moderate emphysematous changes and bronchiectasis with regions of mucous plugging. 3. Sequela of remote prior healed granulomatous disease. 4. Borderline hepatic steatosis. AFB Culture & Smear (11/06): negative Sputum, cytology (11/07): No malignant cells identified Problem List: Hemoptysis secondary to CAP, bronchiectasis Community acquired pneumonia COPD (chronic obstructive pulmonary disease) with emphysema Bronchiectasis with (acute) exacerbation HTN (hypertension) BPH w/o urinary obs/LUTS Brief History of Present Illness: 89-year-old male past medical history of hypertension, hyperlipidemia, BPH, unsure history of cardiac problems but denies any previous CAD or cardiac catheterization but on aspirin and Plavix as well as flecanide ( ? atrial fib) admitted after developing one-day history of cough which later became more persistent associated with bloody sputum today. Patient denies any chest pain but feels some chest congestion with each coughing episodes now. He continued to have hemoptysis with his cough. even on arrival at the emergency room. He denies previous similar episode. He denies any cough contact. He denies any fever. He admits to shortness of breath starting today. Shortness of breath is only present on S action. He denies any but the swelling. He denies any recent travel. He denies any covid 19 exposure. Patient denies any personal family history of lung cancer. He states he has never been diagnosed with COPD. He has never been diagnosed with any tu berculosis or chronic lung infection in the past. He admits to prior history of tobacco use but quit over 30 years ago. He denies any significant weight loss- admit to only 3 lb weight change in the last 6 months. Initial testing shows negative screen for covid 19 or influenza. Chest x-ray shows calcified bilateral granuloma. CT of the chest shows no evidence of pulmonary embolism but significant bronchiectasis in the right upper lung with mucus plugging He has being admitted for further workup of hemoptysis. Hospital Course: Patient was admitted and treated for community acquired pneumonia. Pulmonology was consulted. Sputum culture grew e.coli, which was felt to be a contaminant. Sputum was sent for AFB culture/smear which returned negative. He was discharged home with 7 day prescriptions for doxycycline and levaquin per pulmonology recommendations. He is to f/u with Dr. Soler in ~1 week. On day of discharge, patient was breathing comfortably and no longer had hemoptysis. Vital Signs/Physical Exam: Physical Exam: General: alert, NAD, AAOx3 HEENT: sclera anicteric, normal conjunctiva Pulm: CTAB, breathing comfortably on RA, no crackles/rales Cardiovascular: No edema, Regular rate/rhythm, Normal S1 S2 Abd: soft, NTND Ext: no edema, no rash Temp Pulse Resp BP Pulse Ox 97.3 F 82 16 126/66 97 11/09/20 11:47 11/09/20 11:47 11/09/20 11:47 11/09/20 11:47 11/09/20 11:47 Laboratory Data at Discharge: WBC 8.40 K/uL (4.3-10.9) D 11/09/20 03:00 Hgb 11.6 g/dL (13.6-17.9) L 11/09/20 03:00 Hct 34.7 % (39.6-49.0) L 11/09/20 03:00 Plt Count 217 K/uL (152-406) 11/09/20 03:00 PT 14.2 SECONDS (9.5-12.5) H 11/05/20 19:55 INR 1.23 11/05/20 19:55 Sodium 141 mmol/L (136-145) 11/09/20 03:00 Potassium 4.2 mmol/L (3.5-5.1) 11/09/20 03:00 BUN 19 mg/dL (7-18) H 11/09/20 03:00 Creatinine 1.04 mg/dL (0.55-1.3) 11/09/20 03:00 Glucose 98 mg/dL (74-106) 11/09/20 03:00 Magnesium 2.1 mg/dL (1.8-2.4) 11/09/20 03:00 Total Bilirubin 0.5 mg/dL (0.2-1.0) 11/07/20 04:02 AST 21 U/L (15-37) 11/07/20 04:02 ALT 16 U/L (12-78) 11/07/20 04:02 Alkaline Phosphatase 68 U/L (45-117) 11/07/20 04:02 Troponin I < 0.02 ng/mL (0.0-0.045) 11/08/20 04:43 Triglycerides 43 mg/dL (<150) 11/07/20 04:02 Cholesterol 163 mg/dL (<200) 11/07/20 04:02 HDL Cholesterol 68 mg/dL (40-60) H 11/07/20 04:02 Cholesterol/HDL Ratio 2.40 11/07/20 04:02 Home Medications: RX: Albuterol Sulfate [Proventil Hfa] 6.7 gm IH BID PRN 11/06/20 RX: Amlodipine Besylate [Norvasc] 5 mg PO DAILY 11/06/20 RX: Clopidogrel Bisulfate [Plavix*] 75 mg PO DAILY 11/06/20 RX: Digoxin 125 mcg PO DAILY 11/06/20 RX: Flecainide [Tambocor*] 100 mg PO BID 11/06/20 RX: Gabapentin [Neurontin*] 100 mg PO BID 11/06/20 RX: Isosorbide Mononitrate [Isosorbide Mononitrate ER] 30 mg PO DAILY 11/06/20 RX: Pantoprazole [Protonix Tab*] 40 mg PO 0730 11/06/20 RX: Pravastatin Sodium [Pravachol] 20 mg PO DAILY 11/06/20 RX: Tamsulosin [Flomax*] 0.4 mg PO DAILY 11/06/20 RX: Doxycycline Hyclate 100 mg PO BID 7 Days #14 tablet 11/09/20 RX: levoFLOXacin [Levaquin*] 750 mg PO DAILY 7 Days #7 tab 11/09/20 New Medications: RX: Doxycycline Hyclate 100 mg PO BID 7 Days #14 tablet RX: levoFLOXacin [Levaquin*] 750 mg PO DAILY 7 Days #7 tab Physician Discharge Instructions: Here found to have a community-acquired pneumonia. Your or sputum was tested and negative for tuberculosis, fungal infection, and cancer cells. Your discharge home with 2 antibiotics - Levaquin and doxycycline for 7 more days. Please follow up with Dr. Soler in 1 week. Continue the other home medications as previously prescribed. Diet: AHA Activity: Ad manas Followup: Doe Soler MD [ACTIVE - CAN ADMIT] - (call to schedule appointment) OOT,OOT [Primary Care Provider] - Time spent managing pt's care (in minutes): 40
[2020-11-09 16:39] VITALS: BP 119/65; TEMP 97.4
== END 2020-11-09 17:45 | disposition home health service (06) | DRG 194 ==
LOC: ER 17:00 → 4TH 11-06 01:16
PROVIDERS: ADMIT Internal Medicine; ATTEND Hospitalist
DX: J18.9 Pneumonia, unspecified organism (principal); J47.1 Bronchiectasis with (acute) exacerbation; J43.9 Emphysema, unspecified; N40.0 Benign prostatic hyperplasia without lower urinary tract symptoms; I48.91 Unspecified atrial fibrillation; I49.9 Cardiac arrhythmia, unspecified; I10 Essential (primary) hypertension; E78.5 Hyperlipidemia, unspecified; Z79.82 Long term (current) use of aspirin; Z79.02 Long term (current) use of antithrombotics/antiplatelets; Z71.6 Tobacco abuse counseling; Z60.2 Problems related to living alone; Z87.891 Personal history of nicotine dependence; Z20.822 Contact with and (suspected) exposure to COVID-19
CPT/HCPCS: 0240U; 36415; 71045; 71275; 80048; 80053; 80061; 80076; 83735; 83880; 84145; 84443; 84484; 85025; 85610; 86140; 86850; 86900; 86901; 87015; 87040; 87070; 87077; 87116; 87186; 87205; 87206; 88108; 88305; 93005; 94640; 94760; 97161; 99285; J0360; J0696; J1644; J2930; Q9967